=== PATIENT | female | born 1990 | race Caucasian/White ===

== ENCOUNTER 2020-03-13 18:15 | Emergency (ER) | payer OTHER ==
[~2020-03-13] VITALS: Wt 65.8 kg
[2020-03-13] MEDS ORDERED: LATU40TA1 PO (18:45)
[2020-03-13] MEDS ORDERED: MIRTAZAPINE7.5 MG PO (18:45)
[2020-03-13] MEDS ORDERED: GABAPENTIN600 MG PO (18:46)
[2020-03-13] MEDS ORDERED: DOXYCYCLINE HY100 M3 PO (18:46)
== END 2020-03-13 19:54 | disposition home or self-care (01) ==
LOC: ED 18:15
DX: L02.414 Cutaneous abscess of left upper limb (principal); Z88.8 Allergy status to other drugs, medicaments and biological substances; Z79.899 Other long term (current) drug therapy